=== PATIENT | female | born 1990 | race Caucasian/White ===

== ENCOUNTER 2017-10-17 08:23 | Emergency (ER) | payer BC ==
--- NOTE | 2017-10-17 08:28 | PDOC ---
History of Present Illness - General Chief Complaint: Injury Stated Complaint: FALL Time Seen by Provider: 10/17/17 08:28 - History of Present Illness Initial Comments: 10/17/17 08:29 Ms. Daniels is a 27 yo female w/ no pmh who presents after she slipped off of the last step of her stairs earlier this morning due to ice. She reports she broke her fall with her hands and that she has no pain anywhere accept for her right foot. She denies any head injury or LOC. The patient denies chest pain, shortness of breath, headache and dizziness. Denies fever, chills, nausea, vomit, diarrhea and constipation. Denies dysuria, frequency, urgency and hematuria. Allergies: None Past History - Past Medical History Allergies/Adverse Reactions: Allergies Allergy/AdvReac Type Severity Reaction Status Date / Time No Known Allergies Allergy Verified 10/17/17 08:41 Home Medications: Ambulatory Orders Naproxen 250 mg PO BID PRN #8 tablet 10/17/17 Review of Systems - Review of Systems Comments:: 10/17/17 08:28 GENERAL/CONSTITUTIONAL: No fever or chills. No weakness. HEAD, EYES, EARS, NOSE AND THROAT: No change in vision. No ear pain or discharge. No sore throat. CARDIOVASCULAR: No chest pain or shortness of breath RESPIRATORY: No cough, wheezing, or hemoptysis. GASTROINTESTINAL: No nausea, vomiting, diarrhea or constipation. GENITOURINARY: No dysuria, frequency, or change in urination. MUSCULOSKELETAL: +Right ankle pain s/p fall SKIN: No rash NEUROLOGIC: No headache, vertigo, loss of consciousness, or change in strength/ sensation. ENDOCRINE: No increased thirst. No abnormal weight change HEMATOLOGIC/LYMPHATIC: No anemia, easy bleeding, or history of blood clots. ALLERGIC/IMMUNOLOGIC: No hives or skin allergy. *Physical Exam - Physical Exam Comments: 10/17/17 08:28 GENERAL: Awake, alert, and fully oriented, in no acute distress HEAD: No signs of trauma, normocephalic, atraumatic EYES: PERRLA, EOMI, sclera anicteric, conjunctiva clear ENT: Auricles normal inspection, hearing grossly normal, nares patent, oropharynx clear without exudates. Moist mucosa NECK: Normal ROM, supple, no lymphadenopathy, JVD, or masses LUNGS: No distress, speaks full sentences, clear to auscultation bilaterally HEART: Regular rate and rhythm, normal S1 and S2, no murmurs, rubs or gallops, peripheral pulses normal and equal bilaterally. ABDOMEN: Soft, nontender, normoactive bowel sounds. No guarding, no rebound. No masses EXTREMITIES: +Minor swelling around lateral right epicondyle. Patient tender to palpation on medial and lateral posterior epicondyles. Minimal ecchymosis along lateral foot as well. No gross deformity noted. Negative Rodas's sign. NEUROLOGICAL: Cranial nerves II through XII grossly intact. Normal speech, normal gait, no focal sensorimotor deficits SKIN: Warm, Dry, normal turgor, no rashes or lesions noted. Medical Decision Making - Medical Decision Making 10/17/17 10:29 Ms. Daniels is a 27 yo female w/ no pmh who presents s/p fall earlier this morning. ruled out w/ serum preg; XRays taken of tib/fib/ankle/foot. X -ray revealed no acute bony abnormality. Discharging patient to home with instructions to follow-up with orthopedics for further evaluation. Patient given crutches and boot and Rx for pain control. Patient verbalized understanding and agreement of/with discharge plan and will comply. *DC/Admit/Observation/Transfer Diagnosis at time of Disposition: Ankle sprain Qualifiers: Encounter type: initial encounter Involved ligament of ankle: unspecified ligament Laterality: right Qualified Code(s): S93.401A - Sprain of unspecified ligament of right ankle, initial encounter - Discharge Dispostion Disposition: HOME - Referrals Referrals: Jatinder Rao MD [Staff Physician] - - Patient Instructions Printed Discharge Instructions: DI for Ankle Sprain - Post Discharge Activity Forms/Work/School Notes: Back to Work
[2017-10-17] MEDS ORDERED: ACETAMINOPHEN 325 MG TABLET (FP) PO ONE (08:33)
[2017-10-17] MEDS ORDERED: ACETAMINOPHEN 325 MG TABLET (FP) ONE (08:42)
[2017-10-17 08:43] VITALS: BP 106/59; PULSE 85; TEMP 97.9; BMI 23.9
--- NOTE | 2017-10-17 10:02 | PDOC ---
Attending Attestation - Resident Resident Name: Neville Mata - ED Attending Attestation I have performed the following: I have examined & evaluated the patient, The case was reviewed & discussed with the resident, I agree w/resident's findings & plan, Exceptions are as noted - Medical Decision Making 10/17/17 09:50 27-year-old female presents with right foot pain after a slip and fall on ice this morning. Vitals within normal limits. No other injuries. On exam ecchymosis over the right superior and inferior lateral malleolus with no significant deformities.2+ DP pulse, NVI, will obtain B-HCG, then XR to eval for bony injury <Nassef,Yomna - Last Filed: 10/17/17 09:50> - HPI HPI: 10/17/17 10:43 The patient is a 27 year old female with no significant PMH who presents to the emergency department with right ankle pain s/p slip and fall on ice prior to arrival. She reports exiting her house down the front steps when she slipped and fell on the last step. She reports breaking her fall with her outstretched arms but denies pain in her arms. She denies hitting her head or LOC. She denies chest pain or shortness of breath. Was in her USOGH prior to the fall. Allergies: NKA - Physicial Exam PE: 10/17/17 10:43 GENERAL: Awake, alert, and fully oriented, in no acute distress HEAD: No signs of trauma EYES: PERRLA, EOMI, sclera anicteric, conjunctiva clear ENT: Auricles normal inspection, hearing grossly normal, nares patent, oropharynx clear without exudates. Moist mucosa NECK: Normal ROM, supple, no lymphadenopathy, JVD, or masses LUNGS: Breath sounds equal, clear to auscultation bilaterally. No wheezes, and no crackles HEART: Regular rate and rhythm, normal S1 and S2, no murmurs, rubs or gallops ABDOMEN: Soft, nontender, normoactive bowel sounds. No guarding, no rebound. No masses EXTREMITIES: R ankle with 2+ DP pulse, +mild edema and ecchymosis to superior and inferio lateral malleolus. +ttp to distal lateral malleolus. Normal dorsiflexion and plantar flexion. Negative maya sign. Otherwise, Normal range of motion, no edema. No clubbing or cyanosis. No cords, erythema, or tenderness BACK: No midline spinal tenderness in cervical/thoracic/lumbar region NEUROLOGICAL: Normal speech, cranial nerves intact, negative pronator drift, 5/ 5 strength in all 4 extremities, normal sensation to light touch in all 4 extremities, normal cerebellar exam, normal reflexes and tone SKIN: Warm, Dry, normal turgor, no rashes or lesions noted. <Gunner Packer - Last Filed: 10/17/17 10:43>
[2017-10-17] MEDS ORDERED: NAPROXEN 500 MG TABLET (FP) PO ONE (10:32)
[2017-10-17] MEDS ORDERED: NAPROXEN 500 MG TABLET (FP) ONE (10:35)
== END 2017-10-17 11:08 | disposition home or self-care (01) ==
LOC: JER 08:23
DX: S93.401A Sprain of unspecified ligament of right ankle, initial encounter (principal); W10.9XXA Fall (on) (from) unspecified stairs and steps, initial encounter; Y93.89 Activity, other specified; Y92.89 Other specified places as the place of occurrence of the external cause
CPT/HCPCS: 36415; 73590-TC-RT-FY; 73610-TC-RT-FY; 73630-TC-RT-FY; 84703; 99282-25

== ENCOUNTER 2018-10-21 03:30 | Inpatient (IN) | payer BC, OTHER ==
[~2018-10-21 03:30] MED LIST: DEXTROSE 5%-LACTATED RINGERS 1,000 ML IV SCH
[2018-10-21 04:33] LABS: BASO % 0.5 % (0-2.0); EOS % 0.8 % (0-4.5); HEMATOCRIT 34.4 % (32.4-45.2); HEMOGLOBIN 11.7 GM/dL (10.7-15.3); LYMPH % 28.8 % (8-40); MCH 27.1 pg (25.7-33.7); MEAN CELL VOLUME 79.6 fl (80-96); MEAN PLT VOLUME 9.3 fl (7.5-11.1); NEUT % 58.9 % (42.8-82.8); PLATELET COUNT 240 K/MM3 (134-434); RBC 4.32 M/mm3 (3.60-5.2); RDW 13.4 % (11.6-15.6); WHITE BLOOD COUNT 9.6 K/mm3 (4.0-10.0)
[2018-10-21 04:39] VITALS: BMI 29.6
[2018-10-21 04:46] LABS: INR 0.95 (0.83-1.09); PROTHROMBIN TIME (PATIENT) 11.2 SEC (9.7-13.0)
[2018-10-21 04:49] LABS: ACTIVATED PTT 23.8 SECONDS (25.2-36.5)
[2018-10-21 04:53] LABS: ANION GAP 5 MMOL/L (8-16); BLOOD UREA NITROGEN 10 mg/dL (7-18); CALCIUM 8.3 mg/dL (8.5-10.1); CHLORIDE 108 mmol/L (98-107); CO2 23 mmol/L (21-32); CREATININE 0.7 mg/dL (0.55-1.3); GLUCOSE,RANDOM 125 mg/dL (74-106); POTASSIUM 3.8 mmol/L (3.5-5.1); SODIUM 136 mmol/L (136-145)
[2018-10-21] MEDS ORDERED: FENTANYL/BUPIVACAINE/NS/PF - PCEA - 50 ML DISP.SYRIN EP ONE (05:55)
--- NOTE | 2018-10-21 05:57 | HP ---
Past Medical History - Primary Care Physician PCP:: Danna Izaguirre - Admission Chief Complaint: 28yo P2 @ 39.1 wks with ROM @ 2:45am, clear fluid, now with Q 4 -5min contructions, noted to have some VB, + FM History of Present Illness: 1. x 2, 6lb and 7lb 2. ASCUS PAP 3. Term PROM - GBS neg History Source: Patient Limitations to Obtaining History: No Limitations - Past Medical History ...: 3 ...Para: 2 ( 6lb, 7lb) ...Term: 2 ...: 0 ...Spon : 0 ...Induced : 0 ...Multiple Gestation: 0 ...LMP: 01/25/18 ... Weeks Gestation by Dates: 38.3 ...EDC by Dates: 11/01/18 ...EDC by Sono: 10/27/18 - Past Surgical History Past Surgical History: Yes: None Hx Myomectomy: No Hx Transabdominal Cerclage: No - Smoking History Smoking history: Never smoked Have you smoked in the past 12 months: No - Alcohol/Substance Use Hx Alcohol Use: No History of Substance Use: reports: None - Social History Usual Living Arrangement: Yes: With Spouse Home Medications - Allergies Allergies/Adverse Reactions: Allergies Allergy/AdvReac Type Severity Reaction Status Date / Time No Known Allergies Allergy Verified 10/21/18 04:14 - Home Medications Home Medications: Ambulatory Orders Vitamins (Sjr) - 1 tab PO DAILY 10/21/18 Family Disease History - Family Disease History Family History: Denies Family Disease History: Diabetes: Mother Review of Systems - Review of Systems Constitutional: reports: No Symptoms Eyes: reports: No Symptoms HENT: reports: No Symptoms Neck: reports: No Symptoms Cardiovascular: reports: No Symptoms Respiratory: reports: No Symptoms Gastrointestinal: reports: No Symptoms Genitourinary: reports: No Symptoms Breasts: reports: No Symptoms Reported Musculoskeletal: reports: No Symptoms Integumentary: reports: No Symptoms Neurological: reports: No Symptoms Endocrine: reports: No Symptoms Hematology/Lymphatic: reports: No Symptoms Psychiatric: reports: No Symptoms Physical Exam - Maternity Vital Signs: Vital Signs Temperature 98.5 F 10/21/18 04:00 Pulse Rate 93 H 10/21/18 04:00 Respiratory Rate 20 10/21/18 04:00 Blood Pressure 136/73 10/21/18 04:00 O2 Sat by Pulse Oximetry (%) Constitutional: Yes: Well Nourished Eyes: Yes: WNL HENT: Yes: WNL Neck: Yes: WNL, Supple Cardiovascular: Yes: WNL, Regular Rate and Rhythm Lungs: Clear to auscultation Breast(s): Yes: WNL - Abdominal Exam/OB Fundal Height: 39 (7.5lb EFW) Number of Fetuses: Single Presentation: Vertex (Bed side US c/w Posterior placenta, no previa) Contractions: Yes Regularity: Regular Intensity: Mod/Strong Monitor Mode: External Heart Rate (range): 150 mild varriebility Heart Rate Location: Midline Category: II Accelerations: Uniform Decelerations: None - Vaginal Exam/OB Vaginal Bleediing: Yes (likely heavy bloody show Bed side US shows posterior placenta, no previa, + FM, copious fluid around the baby) Speculum Exam: No Dilatation (cm): 2-3cm Effacement (%): 75% Amniotic Membrane Status: Ruptured Nitrazine Test: Positive Amniotic Fluid: Yes: Clear Presentation: Vertex/Position Station: -3 - Physical Exam Musculoskeletal: Yes: WNL Extremities: Yes: WNL Edema: No Integumentary: Yes: WNL ...Motor Strength: WNL Psychiatric: Yes: WNL, Alert, Oriented - Labs Lab Results: CBC, BMP 10/21/18 04:20 10/21/18 04:20 Opos/NR/HB neg/HIV neg/RI/GCT-117 Assessment/Plan 28yo P2 @ 39.1wks by early US with PROM in early labor Admit to L&D, IVF, NPO, Bed rest with VB of unexplained nature, Category 2 FHR Recommend to obtain pain relieve via epidural to allow for better Maternal, evaluation O2 by face mask
[2018-10-21] MEDS ORDERED: BUPIVACAINE HCL/PF 0.25% (2.5MG/ML) 10 ML VIAL ONE (06:05)
[2018-10-21] MEDS: ELECTROLYTE-148 SOLN 1,000 ML IV SCH ×2 (06:15→08:00)
[2018-10-21] MEDS ORDERED: NALOXONE HCL 0.4 MG/ML VIAL IVPUSH PRN (06:43)
[2018-10-21] MEDS ORDERED: FENTANYL/BUPIVACAINE/NS/PF - PCEA - 50 ML DISP.SYRIN EP SCH (06:45)
[2018-10-21] MEDS ORDERED: LIDO 2%/EPI 1:200000 PRESRVFRE (20 ML SDVIAL) ONE (09:00)
[2018-10-21] MEDS ORDERED: morphine SULFATE/Preservative Free 0.5 MG/ML (1cc Syringe) ONE ×4 (09:08)
[2018-10-21] MEDS ORDERED: KETOROLAC TROMETHAMINE 30 MG/1 ML VIAL ONE (09:11)
[2018-10-21] MEDS ORDERED: ceFAZolin SODIUM 1 GM VIAL ONE (09:23)
[2018-10-21] MEDS ORDERED: OXYTOCIN 10 UNITS/ML VIAL ONE (09:23)
[2018-10-21] MEDS ORDERED: MIDAZOLAM HCL 2 MG/2 ML SINGLE DOSE VIAL ONE ×2 (09:38→09:42)
[2018-10-21] MEDS ORDERED: PROPOFOL 20 ML ONE ×2 (09:39→09:59)
[2018-10-21] MEDS ORDERED: PHENYLEPHRINE HCL 10 MG/1 ML SINGLE DOSE VIAL ONE (09:46)
[2018-10-21] MEDS ORDERED: ONDANSETRON 4 MG/2 ML VIAL IVPUSH PRN (10:43)
--- NOTE | 2018-10-21 10:43 | OP ---
Operative Note - Note: Operative Date: 10/21/18 Pre-Operative Diagnosis: 28yo P2 with Placental abruption remote from delivery Operation: Primary LST c/section Findings: ~ 10% placental abruption Post-Operative Diagnosis: Same as Pre-op Surgeon: Danna Izaguirre Center Line Cutter Operator: Mikey Damon Anesthesiologist/HEAD ATHLETIC TRAINER/STRENGTH COACH: Alejandro Moss Anesthesia: Epidural Specimens Removed: 1. Viable female, APGARs 9/9, 6.15lb. 2. Full term placenta with signs of abruption Estimated Blood Loss (mls): 500 Drains, Volume Out (mls): 50 Fluid Volume Replaced (mls): 1,000 Operative Report Dictated: Yes
[2018-10-21] MEDS ORDERED: WITCH HAZEL 50% (TUCKS) 40 PAD/JAR PAD TP PRN (10:44)
[2018-10-21] MEDS ORDERED: BENZOCAINE 28 GM HEMORRHOIDAL OINTMENT PR PRN (10:44)
[2018-10-21] MEDS ORDERED: METHYLERGONOVINE MALEATE 0.2 MG/1 ML AMP IM PRN (10:44)
[2018-10-21] MEDS ORDERED: diphenhydrAMINE HCL 25 MG CAPSULE (FP) PO PRN (10:44)
[2018-10-21] MEDS ORDERED: oxyCODONE HCL 5 MG TABLET PO PRN ×2 (10:44)
[2018-10-21] MEDS ORDERED: BENZOCAINE 20% 57 GM BOTTLE TP PRN (10:44)
--- NOTE | 2018-10-21 10:44 | PN ---
Delivery - Delivery Section: Primary Type of Anesthesia: Epidural Episiotomy/Laceration: None EBL (cc): 500 Delivery, Single - Stages of Labor Placenta: Yes: Expressed - Condition of Infant Health Coach/Engraver Hand Hard Metals Present: Yes Infant Gender: Female Position: OA - 1 Minute Total Score: 9 5 Minutes Total Score: 9 - [place] Feeding Plan Initial Plan: Exclusive throughout hospitalization Remarks - Remarks Remarks: Patient continued to have vaginal bleeding FHR Category 2 with some non reassuring features Suspected placental abruption Consented for LST c/section
[2018-10-21] MEDS ORDERED: OXYTOCIN 20 UNITS in 0.9% NS 20 UNIT/1,000 ML INFUS.BAG IV SCH (10:45)
[2018-10-21] MEDS ORDERED: DEXTROSE 5%-LACTATED RINGERS 1,000 ML IV SCH (10:45)
[2018-10-21 10:54] LABS: VENOUS PC02 68.9 mmHg (41-51); VENOUS PO2 18.6 mmHg (30-40)
[2018-10-21] MEDS ORDERED: OXYTOCIN 20 UNITS in 0.9% NS 20 UNIT/1,000 ML INFUS.BAG IV ONE (11:08)
[2018-10-21 11:25] LABS: VENOUS PH 7.14 (7.31-7.41)
[2018-10-21 11:50] LABS: COCAINE, UR NEGATIVE ng/ml (CUTOFF=300); METHADONE, UR NEGATIVE ng/ml (CUTOFF=300); PHENCYCLIDINE,URINE NEGATIVE ng/ml (CUTOFF=25); URINE AMPHETAMINES NEGATIVE ng/ml (CUTOFF=500); URINE BARBITURATES NEGATIVE ng/ml (CUTOFF=200)
[2018-10-21 12:01] LABS: OPIATES, URI POSITIVE ng/ml (CUTOFF=300); URINE BENZODIAZEPINES POSITIVE ng/ml (CUTOFF=200)
[2018-10-21 12:03] LABS: HEMOGLOBIN 10.9 GM/dL (10.7-15.3); MCH 26.5 pg (25.7-33.7); MEAN CELL VOLUME 80.2 fl (80-96); MEAN PLT VOLUME 9.5 fl (7.5-11.1); PLATELET COUNT 241 K/MM3 (134-434); RBC 4.12 M/mm3 (3.60-5.2); RDW 13.8 % (11.6-15.6); WHITE BLOOD COUNT 14.9 K/mm3 (4.0-10.0)
[2018-10-21 12:17] LABS: INR 0.96 (0.83-1.09); PROTHROMBIN TIME (PATIENT) 11.3 SEC (9.7-13.0)
[2018-10-21 12:19] LABS: ACTIVATED PTT 26.9 SECONDS (25.2-36.5)
[2018-10-21] MEDS: CEFAZOLIN 1 GM/D5W 1 GM/50 ML BAG IVPB SCH (17:21)
[2018-10-21] MEDS: IBUPROFEN 800 MG/8 ML IJ IVPB PRN (18:23)
--- NOTE | 2018-10-21 21:19 | OP ---
DATE OF OPERATION: 10/21/2018 PREOPERATIVE DIAGNOSIS: A 28-year-old para 2 with placental abruption removed from delivery. OPERATION: Primary low transverse section. FINDINGS: Approximately 10% placental abruption. POSTOPERATIVE DIAGNOSIS: A 28-year-old para 2 with placental abruption removed from delivery. SURGEON: Danna Izaguirre MD STEAM POWER PLANT OPERATOR: Mikey Damon MD ANESTHESIOLOGIST: Alejandro Moss MD ANESTHESIA: Epidural. Removed viable female with Apgars 9, 9 at 6 pounds 15 ounces at full term. Placenta with signs of abruption. DESCRIPTION OF PROCEDURE: After ensuring informed consent, the patient was brought to the operating room where she was placed in dorsal supine position in left lateral tilt. Pfannenstiel skin incision was made with a scalpel, carried down to the level of the fascia. With the scalpel extended bilaterally with Bovie cautery, dissected off the rectus abdominis muscle with Bovie cautery superiorly and inferiorly. Muscle split in the midline. Peritoneum entered sharply with Metzenbaum scissors with good visualization of underlying organs. Peritoneum was dissected superiorly and inferiorly, and lower edge of the bladder blade was placed into the abdomen to retract the bladder. Vesicouterine peritoneum was tented and incised and dissected bilaterally. Bladder blade was replaced to retract the bladder. Subsequently, the uterine scar was created with scalp, and bloody amniotic fluid was noted. The uterine incision was extended bilaterally manually. The infant's head was delivered atraumatically as well as the rest of the infant's body. Cord clamped and cut. Infant handed to pediatricians. Subsequently, after collecting cord gases and cord blood, the placenta was expressed. The uterus was cleared of clot and debris, repaired with 3-0 Biosyn in 2 layers, 2nd layer imbricating. Excellent hemostasis noted. Abdomen was irrigated. Normal tubes and ovaries were visualized. The peritoneum was closed in the running fashion. The muscle was reapproximated at the midline with 0 Biosyn. The fascia was closed with 0 Vicryl in running fashion. Subcuticular stitches were placed to reapproximate the edges of the incision with 2-0 Vicryl. The skin was closed with 4-0 Vicryl. Excellent hemostasis was seen through and through. Estimated blood loss 500 mL. The patient drained 50 mL of urine and received 1000 mL of IV fluids. Sponge and instrument count correct x2. The patient tolerated the procedure well and was brought to the recovery room in stable condition. Yousuf [id number]
[2018-10-22] MEDS: CEFAZOLIN 1 GM/D5W 1 GM/50 ML BAG IVPB SCH (01:04)
[2018-10-22] MEDS: IBUPROFEN 800 MG/8 ML IJ IVPB PRN (05:09)
[2018-10-22 07:30] LABS: BASO % 0.3 % (0-2.0); EOS % 0.7 % (0-4.5); HEMATOCRIT 27.5 % (32.4-45.2); HEMOGLOBIN 9.2 GM/dL (10.7-15.3); LYMPH % 13.5 % (8-40); MCH 26.4 pg (25.7-33.7); MCHC 33.4 g/dl (32.0-36.0); MEAN CELL VOLUME 79.2 fl (80-96); MEAN PLT VOLUME 9.2 fl (7.5-11.1); MONO % 7.7 % (3.8-10.2); NEUT % 77.8 % (42.8-82.8); PLATELET COUNT 204 K/MM3 (134-434); RBC 3.47 M/mm3 (3.60-5.2); RDW 13.5 % (11.6-15.6); WHITE BLOOD COUNT 12.7 K/mm3 (4.0-10.0)
--- NOTE | 2018-10-22 08:39 | PN ---
Post Progress Note - Subjective Subjective: Patient without acute complaints. Reports tolerating oral intake without nausea or vomiting. Ambulating without dizziness. Denies fevers or chills. Pain well controlled with oral pain medication. Pumping without issue, baby not latching yet. Post Day: 1 Type of Delivery: Primary C/S Vital Signs: Vital Signs Temperature 98.1 F 10/22/18 05:31 Pulse Rate 83 10/22/18 05:31 Respiratory Rate 20 10/22/18 06:00 Blood Pressure 99/49 L 10/22/18 05:31 O2 Sat by Pulse Oximetry (%) 100 10/21/18 11:40 Breast Exam: Yes: Soft Uterus: Yes: Fundus Firm, Fundus below umbilicus Incision: Yes: Dressing dry and intact Abdomen/GI: Yes: Abdomen soft, Passing flatus, Tolerating PO Lochia: Yes: Rubra Lochia, amount: Small Extremities: Yes: Calves non-tender Perineum: Yes: Intact - Labs Labs: CBC WBC 12.7 K/mm3 (4.0-10.0) H 10/22/18 06:35 RBC 3.47 M/mm3 (3.60-5.2) L 10/22/18 06:35 Hgb 9.2 GM/dL (10.7-15.3) L 10/22/18 06:35 Hct 27.5 % (32.4-45.2) L D 10/22/18 06:35 MCV 79.2 fl (80-96) L 10/22/18 06:35 MCH 26.4 pg (25.7-33.7) 10/22/18 06:35 MCHC 33.4 g/dl (32.0-36.0) 10/22/18 06:35 RDW 13.5 % (11.6-15.6) 10/22/18 06:35 Plt Count 204 K/MM3 (134-434) 10/22/18 06:35 MPV 9.2 fl (7.5-11.1) 10/22/18 06:35 Absolute Neuts (auto) 9.9 K/mm3 (1.5-8.0) H 10/22/18 06:35 Neutrophils % 77.8 % (42.8-82.8) D 10/22/18 06:35 Lymphocytes % 13.5 % (8-40) D 10/22/18 06:35 Monocytes % 7.7 % (3.8-10.2) 10/22/18 06:35 Eosinophils % 0.7 % (0-4.5) 10/22/18 06:35 Basophils % 0.3 % (0-2.0) 10/22/18 06:35 Nucleated RBC % 0 % (0-0) 10/22/18 06:35 Assessment/Plan 28yo s/p primary LT C/S, doing well stable, afebrile. The pt is asymptomatic for s/sxs of anemia. care instructions reviewed. Continue routine postop care. Ambulation encouraged.
--- NOTE | 2018-10-22 09:40 | PN ---
Progress Note (short form) - Note Progress Note: POD #1 - s/p under epidural anesthesia with duramorph. VSS. Pt. doing well, resting comfortably in bed. No complaints. Good pain control. No apparent anesthetic complications noted. Continue current care.
[2018-10-22] MEDS: ENOXAPARIN NA (PORCINE) 40 MG/0.4 ML DISP.SYRIN SQ SCH (09:49)
[2018-10-22] MEDS ORDERED: BISACODYL 10 MG SUPP.RECT RC PRN (10:44)
[2018-10-22] MEDS: IBUPROFEN 600 MG TABLET (FP) PO PRN ×3 (13:37→21:56)
[2018-10-22] MEDS ORDERED: SIMETHICONE 80 MG TAB.CHEW (FP) PO PRN (17:21)
[2018-10-22] MEDS: SIMETHICONE 80 MG TAB.CHEW (FP) PO PRN (18:08)
[2018-10-22] MEDS: ACETAMINOPHEN 325 MG TABLET (FP) PO PRN ×2 (18:08→21:57)
[2018-10-23] MEDS: IBUPROFEN 600 MG TABLET (FP) PO PRN ×4 (08:01→20:25)
[2018-10-23] MEDS: ACETAMINOPHEN 325 MG TABLET (FP) PO PRN ×4 (08:01→20:24)
[2018-10-23] MEDS: SIMETHICONE 80 MG TAB.CHEW (FP) PO PRN ×4 (08:02→20:23)
[2018-10-23] MEDS: ENOXAPARIN NA (PORCINE) 40 MG/0.4 ML DISP.SYRIN SQ SCH (09:33)
--- NOTE | 2018-10-23 09:51 | PN ---
Post Progress Note - Subjective Subjective: Patient without acute complaints. Reports tolerating oral intake without nausea or vomiting. Ambulating without dizziness. Denies fevers or chills. Pain well controlled with oral pain medication. without difficulty. Passing flatus. Post Day: 2 Type of Delivery: Primary C/S Vital Signs: Vital Signs Temperature 98.2 F 10/23/18 08:42 Pulse Rate 76 10/23/18 08:42 Respiratory Rate 20 10/23/18 08:42 Blood Pressure 120/75 10/23/18 08:42 O2 Sat by Pulse Oximetry (%) 100 10/21/18 11:40 Breast Exam: Yes: Soft, Cracked Nipples Uterus: Yes: Fundus Firm, Fundus below umbilicus Incision: Yes: Dressing dry and intact, Sutures intact. No: Redness, Oozing Abdomen/GI: Yes: Abdomen soft, Abdominal Distention (mild soft), Tender (mild incisional), Passing flatus, Tolerating PO Lochia: Yes: Serosa Lochia, amount: Small Extremities: Yes: Calves non-tender. No: Edema Activity: Ambulating - Labs Labs: CBC WBC 12.7 K/mm3 (4.0-10.0) H 10/22/18 06:35 RBC 3.47 M/mm3 (3.60-5.2) L 10/22/18 06:35 Hgb 9.2 GM/dL (10.7-15.3) L 10/22/18 06:35 Hct 27.5 % (32.4-45.2) L D 10/22/18 06:35 MCV 79.2 fl (80-96) L 10/22/18 06:35 MCH 26.4 pg (25.7-33.7) 10/22/18 06:35 MCHC 33.4 g/dl (32.0-36.0) 10/22/18 06:35 RDW 13.5 % (11.6-15.6) 10/22/18 06:35 Plt Count 204 K/MM3 (134-434) 10/22/18 06:35 MPV 9.2 fl (7.5-11.1) 10/22/18 06:35 Absolute Neuts (auto) 9.9 K/mm3 (1.5-8.0) H 10/22/18 06:35 Neutrophils % 77.8 % (42.8-82.8) D 10/22/18 06:35 Lymphocytes % 13.5 % (8-40) D 10/22/18 06:35 Monocytes % 7.7 % (3.8-10.2) 10/22/18 06:35 Eosinophils % 0.7 % (0-4.5) 10/22/18 06:35 Basophils % 0.3 % (0-2.0) 10/22/18 06:35 Nucleated RBC % 0 % (0-0) 10/22/18 06:35 Assessment/Plan 28 yo POD # 2 s/p CD, afebrile, vital signs stable, mild asymptomatic anemia, doing well 1. Continue routine postoperative care. 2. Encourage ambulation and incentive spirometer use 3. Continue oral pain medication 4. Patient desires to breastfeed, suspect PTT? Discussed nipple hawthorne and supplementation, pumping Reviewed evaluation and referral for PTT 5. Anticipate discharge home postoperative day #3 or #4
[2018-10-23 20:43] VITALS: TEMP 97.7
[2018-10-23] MEDS ORDERED: SENNOSIDES/DOCUSATE COMBO (SENNA PLUS) TABLET (UD) PO PRN (22:00)
[2018-10-24] MEDS: ACETAMINOPHEN 325 MG TABLET (FP) PO PRN ×3 (01:52→13:06)
[2018-10-24] MEDS: IBUPROFEN 600 MG TABLET (FP) PO PRN ×3 (01:53→13:06)
--- NOTE | 2018-10-24 02:30 | DS ---
Physical Exam-NUCLEAR POWERPLANT MECHANIC HELPER Vital Signs: Vital Signs Temperature 97.7 F 10/23/18 20:42 Pulse Rate 82 10/23/18 20:42 Respiratory Rate 20 10/23/18 20:42 Blood Pressure 125/72 10/23/18 20:42 O2 Sat by Pulse Oximetry (%) 100 10/21/18 11:40 Labs: CBC, BMP 10/22/18 06:35 10/21/18 04:20 Delivery - Delivery Section: Primary Type of Anesthesia: Epidural Episiotomy/Laceration: None EBL (cc): 500 Delivery, Single - Stages of Labor Date 1st Stage Initiatied: 10/21/18 Time 1st Stage Initiated: 02:45 Date of Delivery: 10/21/18 Time of Delivery: 09:41 Time Placenta Delivered: 09:42 Placenta: Yes: Expressed - Condition of Foot Piece Assembler/P[place]man Present: Yes Name: Rose Coello Gender: Female Weight: 6 lb 15 oz Position: OA Total Hours ROM (Hrs/Mins): 3h 57m - 1 Minute Total Score: 9 5 Minutes Total Score: 9 - Feeding Plan Initial Plan: Exclusive throughout hospitalization Discharge Summary Reason For Visit: LABOR ADMIT Current Active Problems delivery delivered (Acute) Placental abruption in third trimester (Acute) Procedures: Principal: cesaraen delivery Hospital Course: Patient was admitted for labor, found to have findings suspicious of placental abruption; underwent emergent CD. POD # 1 patient ambulated, voiding, passing gas, tolerating oral intake and with adequate pain control. Noted to have mild asymptomatic anemia She fulfilled all criteria for discharge POD #3 Condition: Good - Instructions Diet, Activity, Other Instructions: Physical activity Resume your normal everyday activity as tolerated no heavy lifting or exercise until seen by your surgeon. You may walk unlimited hiram of and climb stairs. You may resume driving the car when you feel safe and comfortable behind the wheel. No sexual activity as instructed. Wound care If you have a bandage, leave it on, and keep dry for 48-72 hours. After that time discard the outer bandage. If they are tapes on the skin under the out of bandage leave them in place. They will peel off in the next 7 to 10 days. Do Not Peel them off. You may shower the day after surgery. If there are tapes present on the skin, you may shower over them. Diet There are no dietary restrictions. Eat healthy, high-fiber foods. Drink 6 to 8 glasses of liquid each day. This will assist in keeping your bowels are regular. Pain management You may take Tylenol or acetaminophen or Ibuprofen (for example, Motrin, Advil etc.) from my pain prescription medication is ordered should be taken as prescribed for moderate to severe pain. Call MD for any of the following: Severe pain not relieved by medication Fever of 101 or higher Excessive bleeding or drainage on dressing Inability to urinate Referrals: Irma Wells MD [Staff Physician] - Disposition: HOME - Home Medications Comprehensive Discharge Medication List: Ambulatory Orders Vitamins (Sjr) - 1 tab PO DAILY 10/21/18
--- NOTE | 2018-10-24 02:31 | PN ---
Post Progress Note - Subjective Subjective: Patient without acute complaints. H/H decreased this AM. Orthostatic vital signs WNL this AM. Reports tolerating oral intake without nausea or vomiting. Ambulating without dizziness. Denies fevers or chills. Pain well controlled with oral pain medication. however notices nipple pain Passing flatus. Post Day: 3 Type of Delivery: Primary C/S Vital Signs: Vital Signs Temperature 97.7 F 10/23/18 20:42 Pulse Rate 82 10/23/18 20:42 Respiratory Rate 20 10/23/18 20:42 Blood Pressure 125/72 10/23/18 20:42 O2 Sat by Pulse Oximetry (%) 100 10/21/18 11:40 Breast Exam: Yes: Engorged, Cracked Nipples Uterus: Yes: Fundus Firm, Fundus below umbilicus Incision: Yes: Sutures intact Abdomen/GI: Yes: Abdomen soft, Tender (mild incisional), Passing flatus. No: Abdominal Distention Lochia: Yes: Serosa Lochia, amount: Small Extremities: Yes: Calves non-tender. No: Edema Activity: Ambulating - Labs Labs: CBC WBC 12.7 K/mm3 (4.0-10.0) H 10/22/18 06:35 RBC 3.47 M/mm3 (3.60-5.2) L 10/22/18 06:35 Hgb 9.2 GM/dL (10.7-15.3) L 10/22/18 06:35 Hct 27.5 % (32.4-45.2) L D 10/22/18 06:35 MCV 79.2 fl (80-96) L 10/22/18 06:35 MCH 26.4 pg (25.7-33.7) 10/22/18 06:35 MCHC 33.4 g/dl (32.0-36.0) 10/22/18 06:35 RDW 13.5 % (11.6-15.6) 10/22/18 06:35 Plt Count 204 K/MM3 (134-434) 10/22/18 06:35 MPV 9.2 fl (7.5-11.1) 10/22/18 06:35 Absolute Neuts (auto) 9.9 K/mm3 (1.5-8.0) H 10/22/18 06:35 Neutrophils % 77.8 % (42.8-82.8) D 10/22/18 06:35 Lymphocytes % 13.5 % (8-40) D 10/22/18 06:35 Monocytes % 7.7 % (3.8-10.2) 10/22/18 06:35 Eosinophils % 0.7 % (0-4.5) 10/22/18 06:35 Basophils % 0.3 % (0-2.0) 10/22/18 06:35 Nucleated RBC % 0 % (0-0) 10/22/18 06:35 Assessment/Plan 28 yo POD # 2 s/p CD, afebrile, vital signs stable, mild asymptomatic anemia, doing well 1. Patient stable for discharge home today. 2. Patient encouraged to contact MD for: - Severe pain not controlled by oral pain medication - Fevers or chills - Nausea or vomiting, intolerance of oral intake - Incision redness, tenderness or discharge 3. Patient to follow up in office in 1-2 weeks for incision check, 4-6 weeks for visit 4. To follow up as outpatient for PTT evaluation
[2018-10-24 06:37] LABS: BASO % 0.6 % (0-2.0); EOS % 2.3 % (0-4.5); HEMATOCRIT 24.8 % (32.4-45.2); HEMOGLOBIN 8.3 GM/dL (10.7-15.3); LYMPH % 31.3 % (8-40); MCH 26.2 pg (25.7-33.7); MCHC 33.2 g/dl (32.0-36.0); MEAN CELL VOLUME 78.8 fl (80-96); MEAN PLT VOLUME 8.7 fl (7.5-11.1); MONO % 10.4 % (3.8-10.2); NEUT % 55.4 % (42.8-82.8); PLATELET COUNT 254 K/MM3 (134-434); RBC 3.15 M/mm3 (3.60-5.2); RDW 13.7 % (11.6-15.6); WHITE BLOOD COUNT 8.3 K/mm3 (4.0-10.0)
[2018-10-24] MEDS: SIMETHICONE 80 MG TAB.CHEW (FP) PO PRN ×2 (07:51→13:06)
[2018-10-24 08:25] VITALS: BP 111/64; PULSE 76
[2018-10-24 08:30] LABS: HEMATOCRIT 28.8 % (32.4-45.2); HEMOGLOBIN 9.7 GM/dL (10.7-15.3); MCH 26.9 pg (25.7-33.7); MCHC 33.8 g/dl (32.0-36.0); MEAN CELL VOLUME 79.8 fl (80-96); MEAN PLT VOLUME 8.4 fl (7.5-11.1); PLATELET COUNT 289 K/MM3 (134-434); RBC 3.61 M/mm3 (3.60-5.2); WHITE BLOOD COUNT 8.7 K/mm3 (4.0-10.0)
[2018-10-24] MEDS: ENOXAPARIN NA (PORCINE) 40 MG/0.4 ML DISP.SYRIN SQ SCH (09:55)
--- NOTE | 2018-11-03 12:10 | PATH ---
Surgical Pathology Report Patient Name: LEROY HALEY [facility]. Rec. 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 Specimen(s) Received PLACENTA Clinical History , x2 Partial placental abruption, vaginal bleeding, category 2 tracing, remote from delivery Final Diagnosis PLACENTA, DELIVERY: FOCALLY DISRUPTED THIRD TRIMESTER PLACENTA WITH THREE VESSEL UMBILICAL CORD AND UNREMARKABLE PLACENTAL MEMBRANES. Electronically Signed Gordo Garcia M.D. Gross Description The specimen is received fresh labeled placenta and is a 472 gram, 18.5 x 16.0 x 3.4 cm. placenta with attached membranes and umbilical cord. The attached membranes are obrien, translucent with focal opacities and insert marginally. The umbilical cord measures 12 cm. in length and averages 1 cm. in diameter. The cord inserts eccentrically, 3.5 cm. to the nearest margin. No true knots or strictures are identified. Cut surface of the umbilical cord reveals 3 vessels. The surface is deras-blue with minimal fibrin deposition and appropriate caliber vessels. The maternal surface is red-brown with focal defects. Sectioning reveals red-brown, spongy parenchyma. No lesions are identified. Rack Pusher sections are submitted in three cassettes as follows: 1- membrane rolls and umbilical cord; 2-3- full thickness sections of placenta. /10/31/2018 saudi10/31/2018
== END 2018-10-24 14:10 | disposition home or self-care (01) | DRG 786 ==
LOC: JLDR 03:30 → J3W 12:19
PROVIDERS: ADMIT Obstetrics & Gynecology; ATTEND Obstetrics & Gynecology
PROC: 10D00Z1 Extraction of Products of Conception, Low, Open Approach (ICD-10-PCS; principal; 2018-10-21)
DX: O42.02 Full-term premature rupture of membranes, onset of labor within 24 hours of rupture (principal); O45.8X3 Other premature separation of placenta, third trimester; O90.81 Anemia of the puerperium; D64.9 Anemia, unspecified; O75.89 Other specified complications of labor and delivery; R87.610 Atypical squamous cells of undetermined significance on cytologic smear of cervix (ASC-US); Z3A.39 39 weeks gestation of pregnancy; Z37.0 Single live birth
CPT/HCPCS: 36415; 36600; 80048; 80307; 82803; 85025; 85027; 85384; 85610; 85730; 86593; 86850; 86900; 86901; 88307-TC

== ENCOUNTER 2021-05-31 08:18 | Inpatient (IN) | payer BC ==
[2021-05-31] MEDS ORDERED: ELECTROLYTE-148 SOLN 1,000 ML IV SCH (10:15)
[2021-05-31 10:42] LABS: BASO % 0.3 % (0-2.0); EOS % 0.3 % (0-4.5); HEMATOCRIT 37.1 % (32.4-45.2); LYMPH % 15.9 % (8-40); MCH 25.2 pg (25.7-33.7); MCHC 32.4 g/dl (32.0-36.0); MEAN CELL VOLUME 77.7 fl (80-96); MEAN PLT VOLUME 9.1 fl (7.5-11.1); MONO % 5.8 % (3.8-10.2); NEUT % 77.7 % (42.8-82.8); PLATELET COUNT 277 10^3/uL (134-434); RBC 4.78 M/mm3 (3.60-5.2); RDW 13.9 % (11.6-15.6)
[2021-05-31] MEDS ORDERED: PCA PUMP NR ONE (10:45)
[2021-05-31] MEDS ORDERED: FENTANYL/BUPIVACAINE/NS/PF - PCEA - 50 ML DISP.SYRIN EP ONE (10:45)
[2021-05-31 10:49] VITALS: BMI 31.1
[2021-05-31 10:49] LABS: INR 0.95 (0.83-1.09); PROTHROMBIN TIME (PATIENT) 11.1 SEC (9.7-13.0)
[2021-05-31 10:52] LABS: ACTIVATED PTT 24.5 SECONDS (25.2-36.5)
[2021-05-31 11:01] LABS: BLOOD UREA NITROGEN 9.2 mg/dL (7-18); CALCIUM 9.1 mg/dL (8.5-10.1)
[2021-05-31] MEDS ORDERED: BUPIVACAINE HCL/PF 0.25% (2.5MG/ML) 10 ML VIAL ONE (11:01)
[2021-05-31 11:05] LABS: CREATININE 0.5 mg/dL (0.55-1.3)
[2021-05-31] MEDS ORDERED: NALOXONE HCL 0.4 MG/ML VIAL IVPUSH PRN (11:25)
[2021-05-31] MEDS ORDERED: FENTANYL/BUPIVACAINE/NS/PF - PCEA - 50 ML DISP.SYRIN EP SCH (11:30)
[2021-05-31 11:54] LABS: SYPHILIS W/ RPR CONF NON-REACTIVE (NONREACTIVE)
[2021-05-31 12:23] LABS: HIV INTERPRETATION NEGATIVE (NEGATIVE)
[2021-05-31] MEDS ORDERED: OXYTOCIN 20 UNITS in 0.9% NS 20 UNIT/1,000 ML INFUS.BAG IV ONE (12:26)
[2021-05-31] MEDS ORDERED: OXYTOCIN 20 UNITS in 0.9% NS 20 UNIT/1,000 ML INFUS.BAG IV SCH (13:45)
[2021-05-31] MEDS ORDERED: oxyCODONE HCL 5 MG TABLET PO PRN (13:45)
[2021-05-31] MEDS ORDERED: METHYLERGONOVINE MALEATE 0.2 MG/1 ML AMP IM PRN (13:45)
[2021-05-31] MEDS ORDERED: BENZOCAINE 20% 57 GM BOTTLE TP PRN (13:45)
[2021-05-31] MEDS ORDERED: WITCH HAZEL 50% (TUCKS) 40 PAD/JAR PAD TP PRN (13:45)
[2021-05-31] MEDS ORDERED: BENZOCAINE 28 GM HEMORRHOIDAL OINTMENT TP PRN (13:45)
[2021-05-31] MEDS ORDERED: BISACODYL 10 MG SUPP.RECT RC PRN (13:45)
[2021-05-31] MEDS: IBUPROFEN 600 MG TABLET (FP) PO PRN (18:30)
[2021-05-31] MEDS: ACETAMINOPHEN 325 MG TABLET (FP) PO PRN (21:58)
[2021-06-01] MEDS: IBUPROFEN 600 MG TABLET (FP) PO PRN ×2 (06:29→17:03)
[2021-06-01 07:54] LABS: BASO % 0.7 % (0-2.0); HEMATOCRIT 34.5 % (32.4-45.2); HEMOGLOBIN 11.3 GM/dL (10.7-15.3); LYMPH % 24.7 % (8-40); MCH 25.1 pg (25.7-33.7); MCHC 32.8 g/dl (32.0-36.0); MEAN CELL VOLUME 76.5 fl (80-96); MONO % 7.4 % (3.8-10.2); NEUT % 66.2 % (42.8-82.8); PLATELET COUNT 268 10^3/uL (134-434); RBC 4.51 M/mm3 (3.60-5.2); RDW 14.2 % (11.6-15.6); WHITE BLOOD COUNT 13.4 K/mm3 (4.0-10.0)
[2021-06-01] MEDS: ACETAMINOPHEN 325 MG TABLET (FP) PO PRN ×2 (09:36→14:08)
[2021-06-01] MEDS: PRENATAL VITAMINS W/ FOLIC ACID TABLET (FP) PO SCH (09:36)
[2021-06-01] MEDS ORDERED: SENNOSIDES/DOCUSATE COMBO (SENNA PLUS) TABLET (UD) PO PRN (22:00)
[2021-06-02 09:34] VITALS: BP 110/72; PULSE 81; TEMP 98
[2021-06-02] MEDS: PRENATAL VITAMINS W/ FOLIC ACID TABLET (FP) PO SCH (10:36)
[2021-06-02] MEDS: IBUPROFEN 600 MG TABLET (FP) PO PRN (11:42)
== END 2021-06-02 14:00 | disposition home or self-care (01) | DRG 807 ==
LOC: JDEL 08:18 → JLDR 09:45 → J3W 18:15
PROVIDERS: ADMIT Obstetrics & Gynecology; ATTEND Obstetrics & Gynecology
PROC: 10E0XZZ Delivery of Products of Conception, External Approach (ICD-10-PCS; principal; 2021-05-31)
DX: O80 Encounter for full-term uncomplicated delivery (principal); Z37.0 Single live birth; Z3A.38 38 weeks gestation of pregnancy
CPT/HCPCS: 36415; 59409; 80048; 85025; 85610; 85730; 86780; 86850; 86900; 86901; 87389; C9803; U0003; U0005